=== PATIENT | female | born 1985 | race Caucasian/White ===

== ENCOUNTER 2020-12-20 17:24 | Emergency (ER) | payer OTHER ==
[2020-12-20] MEDS ORDERED: PERCOCET 5/325 T1 EA PO (21:46)
== END 2020-12-20 22:00 | disposition home or self-care (01) ==
LOC: ER1 17:24
DX: S02.651A Fracture of angle of right mandible, initial encounter for closed fracture (principal); S16.1XXA Strain of muscle, fascia and tendon at neck level, initial encounter; Z86.19 Personal history of other infectious and parasitic diseases; W19.XXXA Unspecified fall, initial encounter; Y92.009 Unspecified place in unspecified non-institutional (private) residence as the place of occurrence of the external cause
CPT/HCPCS: 70450; 70486; 72125; 99283